=== PATIENT | female | born 1960 | race Two or more races ===

== ENCOUNTER 2023-03-30 09:52 | Outpatient (CLI) | payer OTHER ==
[~2023-03-30 09:52] MED LIST: CATAFLAM50 MG PO; FLEXERIL10 MG PO; SEPTRA DS TABLE1 TAB PO; TRAMADOL HCL-AP1 TAB PO
== END 2023-03-30 09:54 | disposition home or self-care (01) ==
LOC: NUCLEAR 09:52
PROVIDERS: ATTEND Psychiatry & Neurology Neurology
DX: G30.9 Alzheimer's disease, unspecified (principal)